=== PATIENT | male | born 1985 | race Caucasian/White ===

== ENCOUNTER 2021-06-10 11:13 | Emergency (ER) | payer BC ==
[2021-06-10 11:26] VITALS: BP 126/81; PULSE 89
== END 2021-06-10 12:43 | disposition home or self-care (01) ==
LOC: MW.ED 11:13
DX: S82.891A Other fracture of right lower leg, initial encounter for closed fracture (principal); Z72.0 Tobacco use; X50.1XXA Overexertion from prolonged static or awkward postures, initial encounter
CPT/HCPCS: 29515; 73610-26-RT; 73610-RT; 99283-25